=== PATIENT | male | born 1990 | race Caucasian/White ===

== ENCOUNTER 2019-01-20 20:23 | Emergency (ER) | payer MEDICAID ==
[2019-01-20 20:34] VITALS: BP 122/93
--- NOTE | 2019-01-20 21:23 | ED Physician Documentation ---
PD HPI LOWER EXT INJURY - Stated complaint Stated Complaint: L FOOT R KNEE PX - Chief complaint Chief Complaint: Ext Problem - History obtained from History obtained from: Patient - History of Present Illness PD HPI LOW EXT INJURY LOCATION: Right, Knee Type of injury: Other (he has had some pain in left foot dorsum for few days c/w gout, and then started with notable pain right knee anteriorly also c/w gout he has had in the past. Usually takes Indocin and Colchicine for it, but does not have Rx meds still, and unable to get appt with PCP. Has had steroids at times in the past as well. No ongoing meds. Says has not had flare in awhile with diet change and some weight loss.). No: Fall, Twist, Blunt / blow Timing - onset: How many days ago (couple) Timing - details: Gradual onset, Still present Worsened by: Moving, Palpating Associated symptoms: Swelling, Discolored (red). No: Weakness, Numbness Similar symptoms before: Diagnosis (gout) Review of Systems Constitutional: denies: Fever, Chills, Myalgias Neurologic: denies: Focal weakness, Numbness PD PAST MEDICAL HISTORY - Past Medical History Cardiovascular: None Respiratory: None Neuro: None Endocrine/Autoimmune: None Musculoskeletal: Gout - Present Medications Home Medications: Ambulatory Orders Medication Instructions Recorded Confirmed Colchicine 0.6 mg PO QID PRN #30 capsule 01/20/19 Indomethacin 50 mg PO BID #30 capsule 01/20/19 dexAMETHasone [Decadron] 4 mg PO DAILY #7 tablet 01/20/19 - Allergies Allergies/Adverse Reactions: Allergies Allergy/AdvReac Type Severity Reaction Status Date / Time No Known Drug Allergies Allergy Verified 01/20/19 20:30 PD ED PE NORMAL - Vitals Vital signs reviewed: Yes - General General: Alert and oriented X 3, No acute distress, Well developed/nourished - Derm Derm: Normal color, Warm and dry - Extremities Extremities: Other (right knee anteriorly with some redness and mild swelling prepatellar area. No joint effusion per se. NO skin lesions. Dorsum left foot also with some redness and tenderness but not as notable. ) - Neuro Neuro: Alert and oriented X 3, No motor deficit, No sensory deficit, Normal speech Results - Vitals Vitals: Oxygen O2 Source Room air Departure - Departure Disposition: Home, Self Care Clinical Impression: Acute gout Qualifiers: Gout site: knee Gout etiology: idiopathic Laterality: right Qualified Code(s): M10.061 - Idiopathic gout, right knee Condition: Stable Record reviewed to determine appropriate education?: Yes Instructions: ED Arthritis Gout Follow-Up: Alexander Andre PA-C [Primary Care Provider] - Prescriptions: Colchicine 0.6 mg PO QID PRN #30 capsule PRN Reason: Pain dexAMETHasone [Decadron] 4 mg PO DAILY #7 tablet Indomethacin 50 mg PO BID #30 capsule Comments: Colchicine 3-4 times a day for the next several days until improving and then can go with once daily until fully improved. Indomethacin twice daily for the next week or longer if needed. Decadron steroid for inflammation daily for the next week as well. Take all the medications with food so it does not bother her stomach. Add Tylenol 650 mg every 4 hours if needed for pain additionally. Recheck with your primary care if not improving over the next several days and return if worsening. Discharge Date/Time: 01/20/19 22:51
[2019-01-20] MEDS ORDERED: CHERRY SYRUP 10 ML UDC PO ONE (22:28)
[2019-01-20] MEDS ORDERED: COLCHICINE 0.6 MG TABLET PO STA (22:28)
[2019-01-20] MEDS ORDERED: DEXAMETHASONE 10 MG/ML VIAL PO STA (22:28)
[2019-01-20] MEDS ORDERED: ACETAMINOPHEN 325 MG TABLET PO STA (22:28)
[2019-01-20] MEDS ORDERED: INDOMETHACIN 25 MG CAPSULE PO STA (22:28)
== END 2019-01-20 22:51 | disposition home or self-care (01) ==
LOC: ED 20:23
DX: M10.061 Idiopathic gout, right knee (principal); M79.672 Pain in left foot
CPT/HCPCS: 99283; A9270